=== PATIENT | female | born 1935 | race Caucasian/White ===

== ENCOUNTER 2018-07-29 11:43 | Emergency (ER) | payer OTHER ==
[2018-07-29 11:52] VITALS: BP 121/68; PULSE 99; TEMP 97.4; BMI 14.6
[2018-07-29] MEDS ORDERED: ONDANSETRON 4 MG/2 ML VIAL IVPUSH ONE (14:21)
[2018-07-29] MEDS ORDERED: SODIUM CHLORIDE 0.9% 1000 ML INFUS.BAG IV ONE (14:22)
[2018-07-29] MEDS ORDERED: FAMOTIDINE 20 MG/50 ML IVPB 20 MG/50 ML MG IVPB ONE ×2 (14:22→14:40)
[2018-07-29] MEDS ORDERED: ONDANSETRON 4 MG/2 ML VIAL ONE (14:40)
[2018-07-29] MEDS ORDERED: MECLIZINE HCL 25 MG TABLET (FP) PO ONE (14:42)
[2018-07-29] MEDS ORDERED: ONDANSETRON *ODT* 4 MG TABLET ONE (14:50)
[2018-07-29 16:07] LABS: BASO % 0.9 % (0-2.0); EOS % 0.8 % (0-4.5); HEMATOCRIT 36.6 % (32.4-45.2); HEMOGLOBIN 12.2 GM/dL (10.7-15.3); LYMPH % 32.1 % (8-40); MCH 27.8 pg (25.7-33.7); MCHC 33.4 g/dl (32.0-36.0); MEAN CELL VOLUME 83.2 fl (80-96); MEAN PLT VOLUME 8.3 fl (7.5-11.1); MONO % 7.6 % (3.8-10.2); NEUT % 58.6 % (42.8-82.8); PLATELET COUNT 297 K/MM3 (134-434); RDW 14.9 % (11.6-15.6); WHITE BLOOD COUNT 6.6 K/mm3 (4.0-10.0)
[2018-07-29 16:42] LABS: ALBUMIN 3.9 g/dl (3.4-5.0); ALK PHOS 74 U/L (45-117); ANION GAP 7 MMOL/L (8-16); BILIRUBIN,TOTAL 0.5 mg/dL (0.2-1); BLOOD UREA NITROGEN 24 mg/dL (7-18); CALCIUM 9.3 mg/dL (8.5-10.1); CHLORIDE 105 mmol/L (98-107); CO2 27 mmol/L (21-32); CREATININE 0.7 mg/dL (0.55-1.3); GLUCOSE,RANDOM 81 mg/dL (74-106); LIPASE 220 U/L (73-393); POTASSIUM 4.1 mmol/L (3.5-5.1); SGOT/AST 18 U/L (15-37); SGPT/ALT 8 U/L (13-61); SODIUM 139 mmol/L (136-145); TOT PROT 7.7 g/dl (6.4-8.2)
[2018-07-29] MEDS ORDERED: MECLIZINE HCL 25 MG TABLET (FP) ONE (16:58)
--- NOTE | 2018-07-29 19:06 | PDOC ---
Documentation entered by Yumiko Diaz SCRIBE, acting as scribe for Mansi Palma MD. History of Present Illness - General Chief Complaint: Nausea/Vomiting Stated Complaint: VOMITINGW/ DIZZINESS History Source: Patient Exam Limitations: No Limitations - History of Present Illness Initial Comments: 07/29/18 14:13 The patient is an 83 year old female with a significant past medical history of Parkinson disease, GERD, who present to the ED with complaint of 4 days of dizziness, nausea, vomiting, and abdominal pain. She states she has had about 4 episodes of NBNB emesis a day since onset. She reports the pain is localized to her mid abdominal region, 7/10 in severity which is worse than the pain was at onset 4 days ago. The patient states she feels as if she is spinning. The patient's daughter at bedside states the patient's gait has been unsteady since the symptoms started. The patient denies sick contacts. She states she has taken meclizine in the past for vertigo for which she sees Dr. Amor. The patient denies chest pain, SOB, palpitations. The patient denies nausea, vomiting, diarrhea, constipation. The patient denies dysuria or hematuria. Past History - Past Medical History Allergies/Adverse Reactions: Allergies Allergy/AdvReac Type Severity Reaction Status Date / Time No Known Allergies Allergy Verified 07/29/18 11:47 Home Medications: Ambulatory Orders Carbidopa/Levodopa [Sinemet 25-100 mg Tablet] 1 each PO QID 05/28/15 Meclizine HCl 25 mg PO TID 05/28/15 Omeprazole [Prilosec (RX)] 40 mg PO DAILY 05/28/15 Meclizine HCl 25 mg PO QID PRN #20 tablet 07/29/18 COPD: No Other medical history: PARKINSONS - Immunization History Immunization Up to Date: Yes - Suicide/Smoking/Psychosocial Hx Smoking History: Never smoked Have you smoked in the past 12 months: No Hx Alcohol Use: No Drug/Substance Use Hx: No Substance Use Type: None Review of Systems - Review of Systems Able to Perform ROS?: Yes Comments:: 07/29/18 14:25 GENERAL/CONSTITUTIONAL: No fever or chills. No weakness. HEAD, EYES, EARS, NOSE AND THROAT: No change in vision. No ear pain or discharge. No sore throat. CARDIOVASCULAR: No chest pain or shortness of breath. RESPIRATORY: No cough, wheezing, or hemoptysis. GASTROINTESTINAL: (+) epigastric pain, nausea, vomiting, No diarrhea or constipation. GENITOURINARY: No dysuria, frequency, or change in urination. MUSCULOSKELETAL: No joint or muscle swelling or pain. No neck or back pain. SKIN: No rash NEUROLOGIC: (+) dizziness. No headache, loss of consciousness, or change in strength/sensation. ENDOCRINE: No increased thirst. No abnormal weight change. HEMATOLOGIC/LYMPHATIC: No anemia, easy bleeding, or history of blood clots. ALLERGIC/IMMUNOLOGIC: No hives or skin allergy. *Physical Exam - Vital Signs Last Vital Signs Temp Pulse Resp BP Pulse Ox 97.4 F L 99 H 18 121/68 100 07/29/18 11:48 07/29/18 11:48 07/29/18 11:48 07/29/18 11:48 07/29/18 11:48 - Physical Exam Comments: 07/29/18 14:25 GENERAL: Awake, alert, and fully oriented, in no acute distress HEAD: No signs of trauma EYES: PERRLA, EOMI, sclera anicteric, conjunctiva clear ENT: Auricles normal inspection, hearing grossly normal, nares patent, oropharynx clear without exudates. Moist mucosa NECK: Normal ROM, supple, no lymphadenopathy, JVD, or masses LUNGS: Breath sounds equal, clear to auscultation bilaterally. No wheezes, and no crackles HEART: Regular rate and rhythm, normal S1 and S2, no murmurs, rubs or gallops ABDOMEN: (+) epigastric tenderness. Soft, normoactive bowel sounds. No guarding , no rebound. No masses EXTREMITIES: Normal range of motion, no edema. No clubbing or cyanosis. No cords, erythema, or tenderness NEUROLOGICAL: (+) resting tremor left upper and lower extremities. head shaking. Cranial nerves II through XII grossly intact. Normal speech. unsteady gait. SKIN: Warm, Dry, normal turgor, no rashes or lesions noted. ED Treatment Course - LABORATORY CBC & Chemistry Diagram: 07/29/18 15:58 07/29/18 15:58 - RADIOLOGY Radiology Studies Ordered: Category Date Time Status ABDOMEN CT WITH CONTRAST* [CT] Stat CT Scan 07/29/18 14:[address] WITHOUT CONTRAST [CT] Stat CT Scan 07/29/18 14:40 Ordered Medical Decision Making - Medical Decision Making 07/29/18 14:48 83 yo F with h/o parkinsons, vertigo, on meclizine at home here with n/v x 5 days. c/;o upper epigastric pain, unsteady gait, and vertigo like dizzines. daily having 5 eipsodes of n/v. no change to stool. no abd surgery. on exam mild epigastric ttp. differential vertigo, electrolyte abnormality pancreatitis gastritis dehydration , plan labs ct a/p, ct head. antiemetics and reassess. pt pcp dr hill, sees nuerology dr mendez. 07/29/18 14:50 07/29/18 16:47 focused ED ultraound ruq, indication epigastric pain. gallbladder scanned in two planes. no wall thickening no edema, no pericholecysitic fluid, neg sonographic [place] , no stones. cbd normal 5 mm anterior wall 2 mm. impression normal gallbladder. fu ct a/p ekg 07/29/18 19:[address] with mild gasrtric distension. hepatic lobe lesion unclear. feels improved following meclizline and zofran. tolerating po in ed. would like to go home. fu with dr mendez and dr marcum. *DC/Admit/Observation/Transfer Diagnosis at time of Disposition: Vertigo - Discharge Dispostion Disposition: HOME Condition at time of disposition: Improved Decision to Admit order: No - Prescriptions Prescriptions: Meclizine HCl 25 mg PO QID PRN #20 tablet PRN Reason: Vertigo - Referrals Referrals: Grant Marcum MD [Primary Care Provider] - - Patient Instructions Printed Discharge Instructions: DI for Vomiting -- Adult, Vertigo Additional Instructions: your ct scan shows mild distension of stomach. there is concern for nonspecific finding in liver , recommend a followup ultrasound in 2 months. you should see a hedge trimmer call dr harkins to schedule. return for any problems or concerns. take meclizine 25 mg every 6 hrs as needed for dizziness. - Post Discharge Activity Mansi Palma MD: This documentation has been prepared by the Emily mccord Amanda, SCRIBE, under my direction and personally reviewed by me in its entirety. I confirm that the documentation accurately reflects all work, treatment, procedures, and medical decision making performed by me.
== END 2018-07-29 19:30 | disposition home or self-care (01) ==
LOC: JER 11:43
PROC: 3E033GC Introduction of Other Therapeutic Substance into Peripheral Vein, Percutaneous Approach (ICD-10-PCS; principal; 2018-07-29)
PROC: 3E033GC Introduction of Other Therapeutic Substance into Peripheral Vein, Percutaneous Approach (ICD-10-PCS; 2018-07-29)
PROC: BF42ZZZ Ultrasonography of Gallbladder (ICD-10-PCS; 2018-07-29)
DX: R42 Dizziness and giddiness (principal); R10.13 Epigastric pain
CPT/HCPCS: 36415; 70450-TC; 74177-TC; 76705-TC; 80053; 82550; 83690; 84484; 85025; 96365; 96375; 99282-25; J7030

== ENCOUNTER 2019-03-17 09:24 | Inpatient (IN) | payer OTHER ==
[2019-03-17] MEDS ORDERED: morphine CARPU-JECT 2 MG/1 ML DISP.SYRIN IVPUSH ONE ×2 (09:50→14:10)
--- NOTE | 2019-03-17 10:01 | PDOC ---
Attending Attestation - Resident Resident Name: Catalino Jimenez - ED Attending Attestation I have performed the following: I have examined & evaluated the patient, The case was reviewed & discussed with the resident, I agree w/resident's findings & plan, Exceptions are as noted - HPI HPI: 03/17/19 10:01 Ms. Barry Hernandez is a ivan 83 yo F with a h/o Parkinson's disease s/p fall 4 days ago Pt is typically ambulatory in her home with a walker She sustained a fall on saturday night and was assisted to standing by her daughter and son Pt has been unable to walk since then Pt reports right hip and right knee pain She has also be noted by her family to have decreased po intake Pt states this is not secondary to nausea or abdominal pain She just doesn't want to eat No fevers or chills She has been compliant with her po medications - Physicial Exam PE: 03/17/19 09:53 GENERAL: The patient is in no acute distress, very thin. ENT: Ears normal, nares patent, oropharynx clear without exudates. Dry mucous membranes. NECK: Normal range of motion, supple LUNGS: Breath sounds equal, clear to auscultation bilaterally. No wheezes, and no crackles. HEART: Regular rate and rhythm, normal S1 and S2 without murmur, rub or gallop. ABDOMEN: Soft, nontender, non distended EXTREMITIES: Right leg externally rotated and shortened, left knee unable to flex at the knee NEUROLOGICAL: Cranial nerves II through XII grossly intact. Normal speech. No focal neurological deficits. SKIN: No rashed noted 03/17/19 10:33 - Medical Decision Making 03/17/19 10:36 83-year-old female with a history of Parkinson's disease presenting to the emergency department status post a fall several days ago, inability to ambulate since then. Patient's right leg is shortened and externally rotated She has been unable to bear weight Differential diagnosis includes: Hip fracture, pelvic fracture, musculoskeletal pain We will do: Labs CT head and C-spine X-ray hip pelvis Analgesia EKG Likely admit 03/17/19 10:37 Laboratory Tests 03/17/19 03/17/19 09:52 09:52 WBC 7.1 Hgb 12.3 Hct 35.9 Plt Count 319 PT with INR 12.00 INR 1.02 PTT (Actin FS) 26.0 03/17/19 13:31 X-ray: Right hip abnormal appearing, inferior pubic ramus fractured CT pelvis: acetabular fracture, inferior pubic ramus fracture Pt daughter going to get her parkinson's medication at home (we do not have it on formulary) Clinical impression: fall, initial presentation acetabular fracture, initial presentation inferior pubic ramus fracture, initial presentation
[2019-03-17] MEDS ORDERED: MORPHINE SULFATE 2 MG/ML VIAL ONE ×3 (10:03→16:21)
--- NOTE | 2019-03-17 10:08 | PDOC ---
History of Present Illness - General Chief Complaint: Injury Stated Complaint: FALL Time Seen by Provider: 03/17/19 09:42 History Source: Patient, Family Exam Limitations: Dementia - History of Present Illness Initial Comments: 03/17/19 10:03 Patient is an 83F with history of Parkinson's here today after an unwitnessed fall three days prior to her arrival. She was brought into the ED today because she has been complaining of R knee and R hip pain. Patient was able to use her walker after the fall. Patient denies headache, neck pain, chest pain, shortness of breath, abdominal pain. Patient has not complained of dysuria or increased frequency. Denies fevers, chills, nausea, vomiting. Past History - Past Medical History Allergies/Adverse Reactions: Allergies Allergy/AdvReac Type Severity Reaction Status Date / Time No Known Allergies Allergy Verified 03/17/19 10:13 Home Medications: Ambulatory Orders Carbidopa/Levodopa [Sinemet 25-100 mg Tablet] 1 each PO QID 05/28/15 Amantadine HCl [Amantadine] 100 mg PO DAILY 03/17/19 Docusate Sodium [Colace] 100 mg PO BID 03/17/19 Famotidine [Pepcid] 20 mg PO BID 03/17/19 Levodopa [Inbrija] 42 mg IH DAILY 03/17/19 Megestrol Acetate [Megace -] 20 mg PO QID 03/17/19 Meloxicam 7.5 mg PO TID 03/17/19 COPD: No Other medical history: PARKINSONS - Immunization History Immunization Up to Date: Yes - Psycho Social/Smoking Cessation Hx Smoking History: Never smoked Have you smoked in the past 12 months: No Hx Alcohol Use: No Drug/Substance Use Hx: No Substance Use Type: None Review of Systems - Review of Systems Able to Perform ROS?: Yes Comments:: 03/17/19 10:09 GENERAL/CONSTITUTIONAL: No fever or chills. No weakness. HEAD, EYES, EARS, NOSE AND THROAT: No change in vision. No sore throat. CARDIOVASCULAR: No chest pain or shortness of breath RESPIRATORY: No cough, wheezing, or hemoptysis. GASTROINTESTINAL: No nausea, vomiting, diarrhea or constipation. GENITOURINARY: No dysuria, frequency, or change in urination. MUSCULOSKELETAL: +R hip and R knee pain. No neck or back pain. SKIN: No rash NEUROLOGIC: No headache, vertigo, loss of consciousness, or change in strength/ sensation. ENDOCRINE: No increased thirst. No abnormal weight change HEMATOLOGIC/LYMPHATIC: No anemia, easy bleeding, or history of blood clots. ALLERGIC/IMMUNOLOGIC: No hives or skin allergy. *Physical Exam - Vital Signs Last Vital Signs Temp Pulse Resp BP Pulse Ox 97.4 F L 82 20 120/70 100 03/17/19 09:36 03/17/19 09:58 03/17/19 09:58 03/17/19 09:36 03/17/19 09:58 - Physical Exam 03/17/19 10:09 GENERAL: Awake, alert, and oriented to self/place, not year, in no acute distress HEAD: No signs of trauma, normocephalic, atraumatic EYES: PERRLA, EOMI, sclera anicteric, conjunctiva clear ENT: Auricles normal inspection, hearing grossly normal, nares patent, oropharynx clear without exudates. Moist mucosa NECK: Normal ROM, supple, no lymphadenopathy, JVD, or masses LUNGS: No distress, speaks full sentences, clear to auscultation bilaterally HEART: Regular rate and rhythm, normal S1 and S2, no murmurs, rubs or gallops, peripheral pulses normal and equal bilaterally. ABDOMEN: Soft, nontender, normoactive bowel sounds. No guarding, no rebound. No masses R Hip: Tender, normal ROM, neurovascularly intact, no bruising R knee: Nontender, normal ROM, no signs of trauma, neurovascularly intact NEUROLOGICAL: Cranial nerves II through XII grossly intact. Normal speech, no focal sensorimotor deficits, +parkinson's tremor SKIN: Warm, Dry, normal turgor, no rashes or lesions noted. ED Treatment Course - LABORATORY CBC & Chemistry Diagram: 03/17/19 09:52 03/17/19 09:52 - RADIOLOGY Radiology Studies Ordered: Category Date Time Status CERVICAL SPINE CT W/O CONTR [CT] Stat CT Scan 03/17/19 09:[address] WITHOUT CONTRAST [CT] Stat CT Scan 03/17/19 09:49 Ordered CHEST X-RAY PORTABLE* [RAD] Stat Radiology 03/17/19 09:49 Ordered HIP & PELVIS-RIGHT [RAD] Stat Radiology 03/17/19 09:49 Ordered Medical Decision Making - Medical Decision Making 03/17/19 10:11 Patient 83F with history of Parkinson's here today with unwitnessed fall. Mechanism unknown, cannot rule out syncope, however fall was three days ago. Vitals normal and stable. Patient's main complaint in R hip and R knee. Will treat with morphine. Will workup with cardiac labs, head ct, x-rays of hip and knee. 03/17/19 12:59 CBC, CMP reassuring. Trop negative. UA negative CT head, neck negative for acute pathology. CXR and knee negative for acute pathology Pelvis x-ray shows possibly shortened R femur, ?pelvic fracture. CT ordered 03/17/19 13:[address] shows communited fracture of R acetabulum and inferior pubic ramus Ortho paged Hospitalist paged Will admit for inability to ambulate 2/2 pelvic fracture. 03/17/19 13:58 D/w LEATHA Garcia, pt can weight bear as tolerated. Case d/w Dr Bradley, accepted to hospitalist service Discharge - Discharge Information Problems reviewed: Yes Clinical Impression/Diagnosis: Pelvic fracture Qualifiers: Encounter type: initial encounter Pelvic bone location: acetabulum Sublocation of acetabulum: unspecified portion of acetabulum Fracture type: closed Fracture alignment: nondisplaced Laterality: right Qualified Code(s): S32.401A - Unspecified fracture of right acetabulum, initial encounter for closed fracture Condition: Stable - Admission Yes - Follow up/Referral Referrals: Grant Marcum MD [Primary Care Provider] - - Patient Discharge Instructions - Post Discharge Activity
[2019-03-17 10:09] LABS: BASO % 0.2 % (0-2.0); EOS % 0.2 % (0-4.5); HEMATOCRIT 35.9 % (32.4-45.2); HEMOGLOBIN 12.3 GM/dL (10.7-15.3); LYMPH % 8.7 % (8-40); MCH 30.4 pg (25.7-33.7); MCHC 34.1 g/dl (32.0-36.0); MONO % 7.2 % (3.8-10.2); NEUT % 83.7 % (42.8-82.8); PLATELET COUNT 319 K/MM3 (134-434); RBC 4.04 M/mm3 (3.60-5.2); RDW 13.5 % (11.6-15.6); WHITE BLOOD COUNT 7.1 K/mm3 (4.0-10.0)
[2019-03-17 10:22] LABS: INR 1.02 (0.83-1.09)
[2019-03-17 10:37] LABS: ALBUMIN 3.7 g/dl (3.4-5.0); BILIRUBIN,TOTAL 0.7 mg/dL (0.2-1); BLOOD UREA NITROGEN 25.7 mg/dL (7-18); CALCIUM 8.9 mg/dL (8.5-10.1); CREATININE 0.8 mg/dL (0.55-1.3); MAGNESIUM 1.9 mg/dL (1.8-2.4); TOT PROT 7.6 g/dl (6.4-8.2)
[2019-03-17 10:51] LABS: EPI CELLS 2.5 /HPF (0-5/HPF); HYALINE CASTS 11 /lpf (0-8); URINE APPEARANCE CLEAR; URINE BILIRUBIN 1+ (NEGATIVE); URINE COLOR DK YELLOW; URINE GLUCOSE (UA) NEGATIVE (NEGATIVE); URINE KETONE TRACE (NEGATIVE); URINE LEUK ESTERASE NEGATIVE (NEGATIVE); URINE NITRITE NEGATIVE (NEGATIVE); URINE PROTEIN 1+ (NEGATIVE); URINE RBC 2 /hpf (0-4); URINE WBC 1 /hpf (0-5)
[2019-03-17 13:07] LABS: URINE BACTERIA MODERATE /hpf (NEGATIVE)
[2019-03-17] MEDS ORDERED: morphine CARPU-JECT 2 MG/1 ML DISP.SYRIN IVPUSH PRN (14:14)
[2019-03-17] MEDS ORDERED: LEVODOPA 42 MG IH SCH (14:30)
[2019-03-17] MEDS: SODIUM CHLORIDE 1,000 ML IV SCH (14:37)
--- NOTE | 2019-03-17 14:40 | HP ---
CHIEF COMPLAINT: mechanical fall 2 days ago PCP: kimberlyn Marcum HISTORY OF PRESENT ILLNESS: Patient curt historian so history obtained from family at bedside. 80 yo F w/ hx of Parkinson, multiple syncopal episodes it the past presents after a mechanical fall. Patient lost her balance and fell Saturday03-14-19. Denies feeling dizziness or losing consciousness. Hip pain started after fall and progressively worsened. Patient remaind bed bound for the past 2 days. Currently lives on a 3rd floor walk up. Denies chest pain, sob, abdominal pain or other comlaints ER course was notable for: CT showing fracture of inferior pubic ramus and R acetabulum PAST MEDICAL HISTORY: Parkinson PAST SURGICAL HISTORY: unable to obtain Social History: Denies smoking lives on 3rd floor walk up Allergies No Known Allergies Allergy (Verified 03/17/19 10:13) HOME MEDICATIONS: Home Medications Medication Instructions Recorded Carbidopa/Levodopa [Sinemet 25-100 1 each PO QID 05/28/ mg Tablet] Amantadine HCl [Amantadine] 100 mg PO DAILY 03/17/19 Docusate Sodium [Colace] 100 mg PO BID 03/17/19 Famotidine [Pepcid] 20 mg PO BID 03/17/19 Levodopa [Inbrija] 42 mg IH DAILY 03/17/19 Megestrol Acetate [Megace -] 20 mg PO QID 03/17/19 Meloxicam 7.5 mg PO TID 03/17/19 REVIEW OF SYSTEMS Patient curt historian refer to HPI. PHYSICAL EXAMINATION Vital Signs - 24 hr 03/17/19 03/17/19 03/17/19 09:36 09:58 10:37 Temperature 97.4 F L Pulse Rate 104 H Pulse Rate [ 82 Apical] Respiratory 24 H 20 Rate Blood Pressure 120/70 Blood Pressure [Left Arm] O2 Sat by Pulse 92 L 100 100 Oximetry (%) 03/17/19 14:11 Temperature Pulse Rate Pulse Rate [ 96 H Apical] Respiratory Rate Blood Pressure Blood Pressure 183/92 H [Left Arm] O2 Sat by Pulse 97 Oximetry (%) GENERAL: Awake, alert, and fully oriented, in no acute distress. HEAD: Normal with no signs of trauma. EYES: Psclera anicteric, conjunctiva clear EARS, NOSE, THROAT: Moist mucous membranes. NECK: supple LUNGS: Breath sounds equal, clear to auscultation bilaterally. No wheezes, and no crackles. No accessory muscle use. HEART: Regular rate and rhythm, normal S1 and S2 without murmur, rub or gallop. ABDOMEN: Soft, nontender, not distended, normoactive bowel sounds, no guarding, no rebound, no masses. No hepatomegaly or splenomegaly. MUSCULOSKELETAL: hip tenderness Ext: no cyanosis or edema NEUROLOGICAL: +resting tremor PSYCHIATRIC: Cooperative. Good eye contact. Appropriate mood and affect. SKIN: dry Laboratory Results - last 24 hr 03/17/19 03/17/19 03/17/19 09:52 09:52 09:52 WBC 7.1 RBC 4.04 Hgb 12.3 Hct 35.9 MCV 89.0 MCH 30.4 MCHC 34.1 RDW 13.5 Plt Count 319 MPV 7.0 L D Absolute Neuts (auto) 5.9 Neutrophils % 83.7 H D Lymphocytes % 8.7 D Monocytes % 7.2 Eosinophils % 0.2 Basophils % 0.2 Nucleated RBC % 0 PT with INR 12.00 INR 1.02 PTT (Actin FS) 26.0 Sodium Potassium Chloride Carbon Dioxide Anion Gap BUN Creatinine Est GFR (CKD-EPI)AfAm Est GFR (CKD-EPI)NonAf Random Glucose Calcium Magnesium Total Bilirubin AST ALT Alkaline Phosphatase Creatine Kinase 174 Creatine Kinase Index 0.8 CK-MB (CK-2) 1.5 Troponin I < 0.02 Total Protein Albumin Urine Color Urine Appearance Urine pH Ur Specific [place] Urine Protein Urine Glucose (UA) Urine Ketones Urine Blood Urine Nitrite Urine Bilirubin Urine Urobilinogen Ur Leukocyte Esterase Urine WBC (Auto) Urine RBC (Auto) Urine Casts (Auto) U Epithel Cells (Auto) Urine Bacteria (Auto) 03/17/19 03/17/19 09:52 10:20 WBC RBC Hgb Hct MCV MCH MCHC RDW Plt Count MPV Absolute Neuts (auto) Neutrophils % Lymphocytes % Monocytes % Eosinophils % Basophils % Nucleated RBC % PT with INR INR PTT (Actin FS) Sodium 133 L Potassium 4.0 Chloride 101 Carbon Dioxide 24 Anion Gap 8 BUN 25.7 H Creatinine 0.8 Est GFR (CKD-EPI)AfAm 79.57 Est GFR (CKD-EPI)NonAf 68.66 Random Glucose 64 L Calcium 8.9 Magnesium 1.9 Total Bilirubin 0.7 AST 22 ALT 7 L Alkaline Phosphatase 58 Creatine Kinase Creatine Kinase Index CK-MB (CK-2) Troponin I Total Protein 7.6 Albumin 3.7 Urine Color Dk yellow Urine Appearance Clear Urine pH 5.0 Ur Specific [place] 1.033 Urine Protein 1+ H Urine Glucose (UA) Negative Urine Ketones Trace H Urine Blood Negative Urine Nitrite Negative Urine Bilirubin 1+ H Urine Urobilinogen 1.0 Ur Leukocyte Esterase Negative Urine WBC (Auto) 1 Urine RBC (Auto) 2 Urine Casts (Auto) 11 U Epithel Cells (Auto) 2.5 Urine Bacteria (Auto) Moderate ASSESSMENT/PLAN: # R acetabulum and inferior pubic ramus fracture s/p mechanical fall - pain management - PT/OT eval - rn social work f/u - Ortho consult - no surgical intervention # Parkinson - c/w home medications # c/w rest of chronic home meds # dvt ppx: enoxaparin subq Problem List - Problem (1) Pelvic fracture Code(s): S32.9XXA - FRACTURE OF UNSP PARTS OF LUMBOSACRAL SPINE AND PELVIS, INIT Qualifiers: Encounter type: initial encounter Pelvic bone location: acetabulum Sublocation of acetabulum: unspecified portion of acetabulum Fracture type: closed Fracture alignment: nondisplaced Laterality: right Qualified Code(s ): S32.401A - Unspecified fracture of right acetabulum, initial encounter for closed fracture (2) Parkinson disease Code(s): G20 - PARKINSON'S DISEASE Visit type - Emergency Visit Emergency Visit: Yes Care time: The patient presented to the Emergency Department on the above date and was hospitalized for further evaluation of their emergent condition. - New Patient This patient is new to me today: Yes Date on this admission: 03/17/19 - Critical Care Critical Care patient: No
[2019-03-17] MEDS ORDERED: CARBIDOPA/LEVODOPA 25/100 TABLET (FP) ONE (15:24)
[2019-03-17] MEDS ORDERED: ACETAMINOPHEN 325 MG TABLET (FP) ONE (16:16)
[2019-03-17] MEDS: MORPHINE SULFATE 2 MG/ML VIAL IVPUSH PRN (16:26)
[2019-03-17] MEDS: ACETAMINOPHEN 325 MG TABLET (FP) PO PRN (17:02)
[2019-03-17] MEDS: CARBIDOPA/LEVODOPA 25/100 TABLET (FP) PO SCH ×2 (18:05→21:21)
[2019-03-17] MEDS ORDERED: FLU VACCINE QUAD 60 MCG/0.5 ML (MDV 19-20) IM ONE (18:21)
[2019-03-17] MEDS ORDERED: PNEUMOC 13-VAL CONJ-DIP CRM/PF 0.5 ML DISP.SYRIN IM ONE (18:21)
[2019-03-17] MEDS: LIDOCAINE 5% TOPICAL PATCH TP SCH (20:12)
[2019-03-17] MEDS: DOCUSATE SODIUM 100 MG CAPSULE (FP) PO SCH (21:21)
[2019-03-17] MEDS: LIDOCAINE PATCH REMOVAL MC SCH (21:21)
[2019-03-17] MEDS ORDERED: PATIENT'S OWN MEDICATION (NON-FORMULARY) (Meloxicam [Meloxicam] 7.5 MG) PO SCH (22:00)
[2019-03-17] MEDS: MEGESTROL ACETATE 20 MG TABLET PO SCH (22:55)
[2019-03-18] MEDS: ACETAMINOPHEN 325 MG TABLET (FP) PO PRN (06:46)
--- NOTE | 2019-03-18 08:49 | PN ---
Progress Note, Physician Chief Complaint: No complaints offered. Daughter at bedside History of Present Illness: Patient poor historian so history obtained from family at bedside. 80 yo F w/ hx of Parkinson, multiple syncopal episodes it the past presents after a mechanical fall. Patient lost her balance and fell Saturday03-14-19. Denies feeling dizziness or losing consciousness. Hip pain started after fall and progressively worsened. Patient remaind bed bound for the past 2 days. Currently lives on a 3rd floor walk up. Denies chest pain, sob, abdominal pain or other comlaints ER course was notable for: CT showing fracture of inferior pubic ramus and R acetabulum - Current Medication List Current Medications: Active Medications Acetaminophen (Tylenol -) 650 mg PO Q4H PRN PRN Reason: PAIN Last Admin: 03/17/19 17:02 Dose: 650 mg Amantadine HCl (Symmetrel -) 100 mg PO DAILY [facility] Carbidopa/Levodopa (Sinemet 25/100 -) 1 each PO QID [facility] Last Admin: 03/17/19 21:21 Dose: 1 each Docusate Sodium (Colace -) 100 mg PO BID [facility] Last Admin: 03/17/19 21:21 Dose: 100 mg Enoxaparin Sodium (Lovenox -) 40 mg SQ DAILY [facility] Sodium Chloride (Normal Saline -) 1,000 mls @ 75 mls/hr IV ASDIR [facility] Last Admin: 03/17/19 14:37 Dose: 75 mls/hr Lidocaine (Lidoderm Patch -) 1 patch TP DAILY [facility] Last Admin: 03/17/19 20:12 Dose: 1 patch Megestrol Acetate (Megace -) 20 mg PO QID [facility] Last Admin: 03/17/19 22:55 Dose: 20 mg Miscellaneous (Lidoderm Patch Removal) 1 each MC DAILY@2200 [facility] Last Admin: 03/17/19 21:21 Dose: Not Given Morphine Sulfate (Morphine Sulfate) 2 mg IVPUSH Q4H PRN PRN Reason: PAIN LEVEL 7 - 10 Last Admin: 03/17/19 16:26 Dose: 2 mg Non-Formulary Medication (Levodopa [Inbrija]) 42 mg IH DAILY [facility] Non-Formulary Medication (Meloxicam [Meloxicam]) 7.5 mg PO TID [facility] - Objective Vital Signs: Vital Signs Temperature 98.0 F 03/18/19 06:00 Pulse Rate 92 H 03/18/19 06:00 Respiratory Rate 18 03/18/19 06:00 Blood Pressure 100/62 03/18/19 06:00 O2 Sat by Pulse Oximetry (%) 98 03/17/19 21:00 Constitutional: Yes: Thin Eyes: Yes: WNL, Conjunctiva Clear HENT: Yes: WNL, Atraumatic, Normocephalic Cardiovascular: Yes: WNL, Regular Rate and Rhythm Respiratory: Yes: WNL, Regular, CTA Bilaterally Gastrointestinal: Yes: WNL, Normal Bowel Sounds ...Rectal Exam: Yes: Deferred Genitourinary: Yes: WNL Breast(s): Yes: WNL Musculoskeletal: Yes: Other (right Hip TTP) Extremities: Yes: WNL Edema: No Peripheral Pulses WNL: Yes Peripheral Pulses: Left Radial: 2+, Right Radial: 2+, Left Doralis Pedis: 2+, Right Dorsalis Pedis: 2+, Left Femoral: 2+, Right Femoral: 2+ Integumentary: Yes: WNL Neurological: Yes: Tremors (resting) ...Motor Strength: WNL (generalized weakness) Psychiatric: Yes: Alert Labs: CBC, BMP 03/17/19 09:52 03/17/19 09:52 INR, PTT INR 1.02 (0.83-1.09) 03/17/19 09:52 - ....Imaging Cat Scan: Report Reviewed (Pelvic Ct noted) Problem List - Problems (1) Syncope and collapse Assessment/Plan: ortostatics done PT dispo to SNF when medically cleared Code(s): R55 - SYNCOPE AND COLLAPSE (2) Fracture of inferior pubic ramus Assessment/Plan: seen by Ortho, no suurgical intevention at this time PT pain managment Code(s): S32.599A - OTH FRACTURE OF UNSP PUBIS, INIT ENCNTR FOR CLOSED FRACTURE (3) Right acetabular fracture Assessment/Plan: see above Code(s): S32.401A - UNSP FRACTURE OF RIGHT ACETABULUM, INIT FOR CLOS FX (4) Prophylactic measure Assessment/Plan: FEN regular diet encourage PO fluids monitor electrolytes add prosorce BID DVT heparin sq Dispo maintain as inpatient until SNF is approved full code Code(s): Z29.9 - ENCOUNTER FOR PROPHYLACTIC MEASURES, UNSPECIFIED (5) Pelvic fracture Code(s): S32.9XXA - FRACTURE OF UNSP PARTS OF LUMBOSACRAL SPINE AND PELVIS, INIT Qualifiers: Encounter type: initial encounter Pelvic bone location: acetabulum Sublocation of acetabulum: unspecified portion of acetabulum Fracture type: closed Fracture alignment: nondisplaced Laterality: right Qualified Code(s ): S32.401A - Unspecified fracture of right acetabulum, initial encounter for closed fracture (6) Parkinson disease Assessment/Plan: c/w simemet Code(s): G20 - PARKINSON'S DISEASE (7) Severe protein-calorie malnutrition Assessment/Plan: Clinical indicators: BMI 14, albumin 3.4, generalized weakness, sunken cheeks with prominent bones with muscle wasting Risk Factors: chronic illness, parkinsons dz, pelvic Fx with immobolity C/w regualr diet with snacks add prosource and MVI Code(s): E43 - UNSPECIFIED SEVERE PROTEIN-CALORIE MALNUTRITION Visit type - Emergency Visit Emergency Visit: Yes ED Registration Date: 03/17/19 Care time: The patient presented to the Emergency Department on the above date and was hospitalized for further evaluation of their emergent condition. - New Patient This patient is new to me today: Yes Date on this admission: 03/19/19 - Critical Care Critical Care patient: No - Discharge Referral Referred to [facility] Med P.C.: No
[2019-03-18] MEDS ORDERED: PT OWN MED DRAWER 7, Y5N ONE ×4 (09:33→21:09)
[2019-03-18] MEDS: DOCUSATE SODIUM 100 MG CAPSULE (FP) PO SCH ×3 (09:36→21:43)
[2019-03-18] MEDS: CARBIDOPA/LEVODOPA 25/100 TABLET (FP) PO SCH ×6 (09:36→21:43)
[2019-03-18] MEDS: MEGESTROL ACETATE 20 MG TABLET PO SCH ×5 (09:36→21:43)
[2019-03-18] MEDS: LIDOCAINE 5% TOPICAL PATCH TP SCH (09:37)
[2019-03-18] MEDS: AMANTADINE HCL 100 MG TABLET PO SCH (09:37)
--- NOTE | 2019-03-18 09:59 | EKG ---
Test Reason : Blood Pressure : / mmHG Vent. Rate : 082 BPM Atrial Rate : 082 BPM P-R Int : 158 ms QRS Dur : 082 ms QT Int : 376 ms P-R-T Axes : 039 028 011 degrees QTc Int : 439 ms NORMAL SINUS RHYTHM VOLTAGE CRITERIA FOR LEFT VENTRICULAR HYPERTROPHY ABNORMAL ECG WHEN COMPARED WITH ECG OF 28-MAY-2015 22:23, ST NO LONGER DEPRESSED IN INFERIOR LEADS ST NO LONGER DEPRESSED IN ANTERIOR LEADS Confirmed by MAGI LAW, GARIMA ([id number]) on 03/18/2019 9:59:13 AM Referred By: Confirmed By:GARIMA SOW MD
[2019-03-18] MEDS ORDERED: ENOXAPARIN NA (PORCINE) 40 MG/0.4 ML DISP.SYRIN SQ SCH (10:00)
[2019-03-18 12:29] LABS: BASO % 0.4 % (0-2.0); EOS % 0.3 % (0-4.5); HEMATOCRIT 35.3 % (32.4-45.2); HEMOGLOBIN 11.8 GM/dL (10.7-15.3); LYMPH % 13.3 % (8-40); MCHC 33.4 g/dl (32.0-36.0); MEAN CELL VOLUME 89.9 fl (80-96); MEAN PLT VOLUME 7.5 fl (7.5-11.1); MONO % 4.7 % (3.8-10.2); NEUT % 81.3 % (42.8-82.8); PLATELET COUNT 299 K/MM3 (134-434); RBC 3.92 M/mm3 (3.60-5.2); RDW 13.8 % (11.6-15.6); WHITE BLOOD COUNT 6.2 K/mm3 (4.0-10.0)
[2019-03-18 13:01] LABS: ALBUMIN 3.2 g/dl (3.4-5.0); BILIRUBIN,TOTAL 0.8 mg/dL (0.2-1); BLOOD UREA NITROGEN 23.1 mg/dL (7-18); CALCIUM 8.3 mg/dL (8.5-10.1); CREATININE 0.8 mg/dL (0.55-1.3); POTASSIUM 3.9 mmol/L (3.5-5.1); TOT PROT 6.5 g/dl (6.4-8.2)
[2019-03-18] MEDS: SODIUM CHLORIDE 1,000 ML IV SCH (14:34)
--- NOTE | 2019-03-18 16:19 | CONSULT ---
Consult Consult Specialty:: orthopedics - History of Present Illness Chief Complaint: right hip pain x 4 days History of Present Illness: 83y/o female with hx of parkinsons c/o right hip and knee pain s/p unwitnessed fall 4 days ago. She was unable to ambulate with a walker and was taken to the ER to evaluation. She had a X-ray and CT in the ER which showed a acetabular fracture. No hip fracture. She still is unable to ambulated. 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 - Alcohol/Substance Use Hx Alcohol Use: No History of Substance Use: reports: None - Smoking History Smoking history: Never smoked Have you smoked in the past 12 months: No - Social History ADL: Support Services Home Medications - Allergies Allergies/Adverse Reactions: Allergies Allergy/AdvReac Type Severity Reaction Status Date / Time No Known Allergies Allergy Verified 03/17/19 10:13 - Home Medications Home Medications: Ambulatory Orders Carbidopa/Levodopa [Sinemet 25-100 mg Tablet] 1 each PO QID 05/28/15 Amantadine HCl [Amantadine] 100 mg PO DAILY 03/17/19 Docusate Sodium [Colace] 100 mg PO BID 03/17/19 Famotidine [Pepcid] 20 mg PO BID 03/17/19 Levodopa [Inbrija] 42 mg IH DAILY 03/17/19 Megestrol Acetate [Megace -] 20 mg PO QID 03/17/19 Meloxicam 7.5 mg PO TID 03/17/19 Amino Acids/Protein Hydrolys [Prosource No Carb Liquid Pkt] 30 ml PO BID@0800, 1730 packet 03/20/19 Heparin - 5,000 unit SQ BID vial 03/20/19 Lidocaine 5% Patch [Lidoderm -] 1 patch TP DAILY patch 03/20/19 Tetrahydrozoline HCl [Visine -] 1 drop OU QID drops 03/20/19 Review of Systems - Review of Systems Constitutional: reports: No Symptoms Eyes: reports: No Symptoms HENT: reports: No Symptoms Neck: reports: No Symptoms Cardiovascular: reports: No Symptoms Respiratory: reports: No Symptoms Gastrointestinal: reports: No Symptoms Genitourinary: reports: No Symptoms Breasts: reports: No Symptoms Reported Musculoskeletal: reports: Extremity Pain Integumentary: reports: No Symptoms Neurological: reports: No Symptoms Endocrine: reports: No Symptoms Hematology/Lymphatic: reports: No Symptoms Psychiatric: reports: No Symptoms Physical Exam Vital Signs: Vital Signs Temperature 98.0 F 03/18/19 06:00 Pulse Rate 100 H 03/18/19 08:47 Respiratory Rate 18 03/18/19 09:00 Blood Pressure 158/79 03/18/19 08:47 O2 Sat by Pulse Oximetry (%) 98 03/18/19 09:00 Constitutional: Yes: Well Nourished, No Distress, Calm HENT: Yes: Atraumatic, Normocephalic Musculoskeletal: Yes: Other (Pelvis/RLE: There is pain with motion of the hip. Smooth Motion of the hip with no blocks to motion. There is mild tenderness along the medial and lateral joint spaces of the knee. knee ROM 0-90deg. No instablity. Compartments are soft. Calf non-tender. NVID. LLE: No motion at knee. Family states this is chronic.) Labs: CBC, BMP 03/18/19 11:40 03/18/19 11:40 Imaging - Results X-ray: Report Reviewed, Image Reviewed Cat Scan: Report Reviewed, Image Reviewed (Minimally dislaped acetabular and pelvis ramus fracture) Assessment/Plan #1 Right pelvic ramus and acetabular fracture -Discussed today's findings and treatment options with the patient and family. Together we decided to proceed non-operatively. -Weight bearing as tolerated -pain control -Physical therapy -Discharge planning. Will likely need STR. -Follow up as outpatinet in 3-4 weeks
[2019-03-18] MEDS: HEPARIN NA (PORCINE) 5,000 UNITS/ML 1ML VIAL SQ SCH (21:43)
[2019-03-18] MEDS: LIDOCAINE PATCH REMOVAL MC SCH (21:44)
[2019-03-19] MEDS: SODIUM CHLORIDE 1,000 ML IV SCH ×2 (06:28→21:28)
[2019-03-19] MEDS: MORPHINE SULFATE 2 MG/ML VIAL IVPUSH PRN (06:31)
--- NOTE | 2019-03-19 07:23 | PN ---
Progress Note, Physician Chief Complaint: No complaints offered. Awaiting SNF placement History of Present Illness: Patient poor historian so history obtained from family at bedside. 80 yo F w/ hx of Parkinson, multiple syncopal episodes it the past presents after a mechanical fall. Patient lost her balance and fell Saturday03-14-19. Denies feeling dizziness or losing consciousness. Hip pain started after fall and progressively worsened. Patient remaind bed bound for the past 2 days. Currently lives on a 3rd floor walk up. Denies chest pain, sob, abdominal pain or other comlaints ER course was notable for: CT showing fracture of inferior pubic ramus and R acetabulum - Current Medication List Current Medications: Active Medications Acetaminophen (Tylenol -) 650 mg PO Q4H PRN PRN Reason: PAIN Last Admin: 03/17/19 17:02 Dose: 650 mg Amantadine HCl (Symmetrel -) 100 mg PO DAILY [facility] Last Admin: 03/18/19 09:37 Dose: 100 mg Carbidopa/Levodopa (Sinemet 25/100 -) 1 each PO QID [facility] Last Admin: 03/18/19 21:43 Dose: 1 each Docusate Sodium (Colace -) 100 mg PO BID [facility] Last Admin: 03/18/19 21:43 Dose: 100 mg Heparin Sodium (Porcine) (Heparin -) 5,000 unit SQ BID [facility] Last Admin: 03/18/19 21:43 Dose: 5,000 unit Sodium Chloride (Normal Saline -) 1,000 mls @ 75 mls/hr IV ASDIR [facility] Last Admin: 03/19/19 06:28 Dose: 75 mls/hr Lidocaine (Lidoderm Patch -) 1 patch TP DAILY [facility] Last Admin: 03/18/19 09:37 Dose: 1 patch Megestrol Acetate (Megace -) 20 mg PO QID [facility] Last Admin: 03/18/19 21:43 Dose: 20 mg Miscellaneous (Lidoderm Patch Removal) 1 each MC DAILY@2200 [facility] Last Admin: 03/18/19 21:44 Dose: 1 each Morphine Sulfate (Morphine Sulfate) 2 mg IVPUSH Q4H PRN PRN Reason: PAIN LEVEL 7 - 10 Last Admin: 03/19/19 06:31 Dose: 2 mg Non-Formulary Medication (Levodopa [Inbrija]) 42 mg IH DAILY [facility] Non-Formulary Medication (Meloxicam [Meloxicam]) 7.5 mg PO TID [facility] - Objective Vital Signs: Vital Signs Temperature 99.1 F 03/19/19 05:45 Pulse Rate 95 H 03/19/19 05:45 Respiratory Rate 18 03/19/19 05:45 Blood Pressure 130/77 03/19/19 05:45 O2 Sat by Pulse Oximetry (%) 98 03/18/19 23:32 Additional Findings/Remarks: Constitutional: Yes: Thin Eyes: Yes: WNL, Conjunctiva Clear HENT: Yes: WNL, Atraumatic, Normocephalic Cardiovascular: Yes: WNL, Regular Rate and Rhythm Respiratory: Yes: WNL, Regular, CTA Bilaterally Gastrointestinal: Yes: WNL, Normal Bowel Sounds ...Rectal Exam: Yes: Deferred Genitourinary: Yes: WNL Breast(s): Yes: WNL Musculoskeletal: Yes: Other (right Hip TTP) Extremities: Yes: WNL Edema: No Peripheral Pulses WNL: Yes Peripheral Pulses: Left Radial: 2+, Right Radial: 2+, Left Doralis Pedis: 2+, Right Dorsalis Pedis: 2+, Left Femoral: 2+, Right Femoral: 2+ Integumentary: Yes: WNL Neurological: Yes: Tremors (resting) ...Motor Strength: WNL (generalized weakness) Psychiatric: Yes: Alert Labs: CBC, BMP 03/18/19 11:40 03/18/19 11:40 INR, PTT INR 1.02 (0.83-1.09) 03/17/19 09:52 - ....Imaging Cat Scan: Report Reviewed Problem List - Problems (1) Syncope and collapse Assessment/Plan: ortostatics done PT dispo to SNF when medically cleared Code(s): R55 - SYNCOPE AND COLLAPSE (2) Fracture of inferior pubic ramus Assessment/Plan: seen by Ortho, no suurgical intevention at this time PT pain managment Code(s): S32.599A - OTH FRACTURE OF UNSP PUBIS, INIT ENCNTR FOR CLOSED FRACTURE (3) Right acetabular fracture Assessment/Plan: see above Code(s): S32.401A - UNSP FRACTURE OF RIGHT ACETABULUM, INIT FOR CLOS FX (4) Prophylactic measure Assessment/Plan: FEN regular diet encourage PO fluids monitor electrolytes add prosorce BID DVT heparin sq Dispo maintain as inpatient until SNF is approved full code Code(s): Z29.9 - ENCOUNTER FOR PROPHYLACTIC MEASURES, UNSPECIFIED (5) Pelvic fracture Code(s): S32.9XXA - FRACTURE OF UNSP PARTS OF LUMBOSACRAL SPINE AND PELVIS, INIT Qualifiers: Encounter type: initial encounter Pelvic bone location: acetabulum Sublocation of acetabulum: unspecified portion of acetabulum Fracture type: closed Fracture alignment: nondisplaced Laterality: right Qualified Code(s ): S32.401A - Unspecified fracture of right acetabulum, initial encounter for closed fracture (6) Parkinson disease Assessment/Plan: c/w simemet resting tremor persists Code(s): G20 - PARKINSON'S DISEASE Visit type - Emergency Visit Emergency Visit: Yes ED Registration Date: 03/17/19 Care time: The patient presented to the Emergency Department on the above date and was hospitalized for further evaluation of their emergent condition. - New Patient This patient is new to me today: No - Critical Care Critical Care patient: No - Discharge Referral Referred to [facility] No
[2019-03-19 08:58] LABS: BASO % 0.5 % (0-2.0); HEMATOCRIT 35.4 % (32.4-45.2); LYMPH % 17.7 % (8-40); MCH 30.1 pg (25.7-33.7); MCHC 33.9 g/dl (32.0-36.0); MEAN CELL VOLUME 88.8 fl (80-96); MEAN PLT VOLUME 7.5 fl (7.5-11.1); MONO % 6.1 % (3.8-10.2); NEUT % 74.7 % (42.8-82.8); PLATELET COUNT 319 K/MM3 (134-434); RBC 3.99 M/mm3 (3.60-5.2); RDW 13.8 % (11.6-15.6)
[2019-03-19 09:21] LABS: ALBUMIN 3.4 g/dl (3.4-5.0); BILIRUBIN,TOTAL 0.8 mg/dL (0.2-1); BLOOD UREA NITROGEN 18.4 mg/dL (7-18); CALCIUM 8.7 mg/dL (8.5-10.1); CREATININE 0.7 mg/dL (0.55-1.3); MAGNESIUM 1.8 mg/dL (1.8-2.4); POTASSIUM 4.2 mmol/L (3.5-5.1); TOT PROT 6.6 g/dl (6.4-8.2)
[2019-03-19] MEDS: MEGESTROL ACETATE 20 MG TABLET PO SCH ×3 (10:09→21:28)
[2019-03-19] MEDS: HEPARIN NA (PORCINE) 5,000 UNITS/ML 1ML VIAL SQ SCH ×2 (10:10→21:28)
[2019-03-19] MEDS: DOCUSATE SODIUM 100 MG CAPSULE (FP) PO SCH ×2 (10:10→21:27)
[2019-03-19] MEDS: CARBIDOPA/LEVODOPA 25/100 TABLET (FP) PO SCH ×4 (10:11→21:28)
[2019-03-19] MEDS: LIDOCAINE 5% TOPICAL PATCH TP SCH (10:11)
[2019-03-19] MEDS: AMANTADINE HCL 100 MG TABLET PO SCH (10:12)
[2019-03-19] MEDS: MULTIVITAMINS (DAILY MVI) TABLET (FP) PO SCH (15:25)
[2019-03-19] MEDS: AMINO ACIDS/PROTEIN HYDROLYS 30 ML LIQUID.PKT PO SCH (17:10)
[2019-03-19] MEDS ORDERED: PT OWN MED DRAWER 7, Y5N ONE (21:16)
[2019-03-19] MEDS: ACETAMINOPHEN 325 MG TABLET (FP) PO PRN (21:27)
[2019-03-19] MEDS: LIDOCAINE PATCH REMOVAL MC SCH (21:28)
[2019-03-20] MEDS: ACETAMINOPHEN 325 MG TABLET (FP) PO PRN (06:34)
[2019-03-20 08:50] LABS: BASO % 0.3 % (0-2.0); EOS % 3.2 % (0-4.5); HEMATOCRIT 35.5 % (32.4-45.2); HEMOGLOBIN 12.1 GM/dL (10.7-15.3); LYMPH % 29.3 % (8-40); MCH 30.5 pg (25.7-33.7); MCHC 34.1 g/dl (32.0-36.0); MEAN CELL VOLUME 89.4 fl (80-96); MEAN PLT VOLUME 7.7 fl (7.5-11.1); MONO % 8.3 % (3.8-10.2); NEUT % 58.9 % (42.8-82.8); PLATELET COUNT 315 K/MM3 (134-434); RBC 3.97 M/mm3 (3.60-5.2); RDW 13.6 % (11.6-15.6); WHITE BLOOD COUNT 4.7 K/mm3 (4.0-10.0)
[2019-03-20 09:20] LABS: ALBUMIN 3.4 g/dl (3.4-5.0); BILIRUBIN,TOTAL 0.7 mg/dL (0.2-1); CALCIUM 8.9 mg/dL (8.5-10.1); CREATININE 0.7 mg/dL (0.55-1.3); MAGNESIUM 1.8 mg/dL (1.8-2.4); POTASSIUM 4.2 mmol/L (3.5-5.1); TOT PROT 6.9 g/dl (6.4-8.2)
[2019-03-20] MEDS ORDERED: PT OWN MED DRAWER 7, Y5N ONE ×4 (09:30→17:18)
[2019-03-20] MEDS: MULTIVITAMINS (DAILY MVI) TABLET (FP) PO SCH (09:36)
[2019-03-20] MEDS: LIDOCAINE 5% TOPICAL PATCH TP SCH (09:36)
[2019-03-20] MEDS: AMINO ACIDS/PROTEIN HYDROLYS 30 ML LIQUID.PKT PO SCH ×2 (09:36→18:02)
[2019-03-20] MEDS: MEGESTROL ACETATE 20 MG TABLET PO SCH ×3 (09:36→18:01)
[2019-03-20] MEDS: DOCUSATE SODIUM 100 MG CAPSULE (FP) PO SCH (09:36)
[2019-03-20] MEDS: CARBIDOPA/LEVODOPA 25/100 TABLET (FP) PO SCH ×3 (09:36→17:59)
[2019-03-20] MEDS: HEPARIN NA (PORCINE) 5,000 UNITS/ML 1ML VIAL SQ SCH (09:46)
[2019-03-20] MEDS: AMANTADINE HCL 100 MG TABLET PO SCH (10:00)
[2019-03-20] MEDS: TETRAHYDROZOLINE HCL EYE DROPS OU SCH ×2 (15:53→18:02)
--- NOTE | 2019-03-20 16:02 | DS ---
Physical Exam: SUBJECTIVE: Patient seen and examined OBJECTIVE: 80 yo F w/ hx of Parkinson, multiple syncopal episodes it the past presents after a mechanical fall. Patient lost her balance and fell Saturday03-14-19. Denies feeling dizziness or losing consciousness. Hip pain started after fall and progressively worsened. Patient remaind bed bound for the past 2 days. Currently lives on a 3rd floor walk up. Denies chest pain, sob, abdominal pain or other comlaints ER course was notable for: CT showing fracture of inferior pubic ramus and R acetabulum Vital Signs Period Temp Pulse Resp BP Sys/Beltran Pulse Ox Last 24 Hr 97.5 F-98.5 F 85-105 18-20 137-170/68-93 98-98 PHYSICAL EXAM GENERAL: Awake, alert, and fully oriented, in no acute distress. HEAD: Normal with no signs of trauma. EYES: Psclera anicteric, conjunctiva clear EARS, NOSE, THROAT: Moist mucous membranes. NECK: supple LUNGS: Breath sounds equal, clear to auscultation bilaterally. No wheezes, and no crackles. No accessory muscle use. HEART: Regular rate and rhythm, normal S1 and S2 without murmur, rub or gallop. ABDOMEN: Soft, nontender, not distended, normoactive bowel sounds, no guarding, no rebound, no masses. No hepatomegaly or splenomegaly. MUSCULOSKELETAL: hip tenderness Ext: no cyanosis or edema NEUROLOGICAL: +resting tremor PSYCHIATRIC: Cooperative. Good eye contact. Appropriate mood and affect. LABS Laboratory Results - last 24 hr 03/20/19 03/20/19 07:55 07:55 WBC 4.7 RBC 3.97 Hgb 12.1 Hct 35.5 MCV 89.4 MCH 30.5 MCHC 34.1 RDW 13.6 Plt Count 315 MPV 7.7 Absolute Neuts (auto) 2.8 Neutrophils % 58.9 D Lymphocytes % 29.3 D Monocytes % 8.3 Eosinophils % 3.2 D Basophils % 0.3 Nucleated RBC % 0 Sodium 139 Potassium 4.2 Chloride 107 Carbon Dioxide 24 Anion Gap 8 BUN 18.0 Creatinine 0.7 Est GFR (CKD-EPI)AfAm 93.52 Est GFR (CKD-EPI)NonAf 80.69 Random Glucose 85 Calcium 8.9 Magnesium 1.8 Total Bilirubin 0.7 AST 19 ALT 10 L Alkaline Phosphatase 56 Total Protein 6.9 Albumin 3.4 HOSPITAL COURSE: Date of Admission:03/17/19 Date of Discharge: 03/20/19 discharge to rehab. Minutes to complete discharge: 45 Discharge Summary Problems reviewed: Yes Reason For Visit: FRACTURE OF PELVIS Current Active Problems Fracture of inferior pubic ramus (Acute) Pelvic fracture (Acute) Prophylactic measure (Acute) Right acetabular fracture (Acute) Severe protein-calorie malnutrition (Acute) Syncope and collapse (Acute) Condition: Stable - Instructions Diet, Activity, Other Instructions: discharge to rehab Referrals: Grant Marcum MD [Primary Care Provider] - Disposition: [facility] - Home Medications Comprehensive Discharge Medication List: Ambulatory Orders Carbidopa/Levodopa [Sinemet 25-100 mg Tablet] 1 each PO QID 05/28/15 Amantadine HCl [Amantadine] 100 mg PO DAILY 03/17/19 Docusate Sodium [Colace] 100 mg PO BID 03/17/19 Famotidine [Pepcid] 20 mg PO BID 03/17/19 Levodopa [Inbrija] 42 mg IH DAILY 03/17/19 Megestrol Acetate [Megace -] 20 mg PO QID 03/17/19 Meloxicam 7.5 mg PO TID 03/17/19 Amino Acids/Protein Hydrolys [Prosource No Carb Liquid Pkt] 30 ml PO BID@0800, 1730 packet 03/20/19 Heparin - 5,000 unit SQ BID vial 03/20/19 Lidocaine 5% Patch [Lidoderm -] 1 patch TP DAILY patch 03/20/19 Tetrahydrozoline HCl [Visine -] 1 drop OU QID drops 03/20/19 Problem List - Problems (1) Fracture of inferior pubic ramus Code(s): S32.599A - OTH FRACTURE OF UNSP PUBIS, INIT ENCNTR FOR CLOSED FRACTURE (2) Pelvic fracture Code(s): S32.9XXA - FRACTURE OF UNSP PARTS OF LUMBOSACRAL SPINE AND PELVIS, INIT Qualifiers: Encounter type: initial encounter Pelvic bone location: acetabulum Sublocation of acetabulum: unspecified portion of acetabulum Fracture type: closed Fracture alignment: nondisplaced Laterality: right Qualified Code(s ): S32.401A - Unspecified fracture of right acetabulum, initial encounter for closed fracture (3) Prophylactic measure Code(s): Z29.9 - ENCOUNTER FOR PROPHYLACTIC MEASURES, UNSPECIFIED (4) Right acetabular fracture Code(s): S32.401A - UNSP FRACTURE OF RIGHT ACETABULUM, INIT FOR CLOS FX (5) Severe protein-calorie malnutrition Code(s): E43 - UNSPECIFIED SEVERE PROTEIN-CALORIE MALNUTRITION (6) Syncope and collapse Code(s): R55 - SYNCOPE AND COLLAPSE (7) Parkinson disease Code(s): G20 - PARKINSON'S DISEASE (8) Syncope Code(s): R55 - SYNCOPE AND COLLAPSE Qualifiers: Encounter type: initial encounter (9) Vertigo Code(s): R42 - DIZZINESS AND GIDDINESS This patient is new to me today: No Emergency Visit: Yes ED Registration Date: 03/17/19 Care time: The patient presented to the Emergency Department on the above date and was hospitalized for further evaluation of their emergent condition. Critical Care patient: No - Discharge Referral Referred to [facility] Med P.C.: No
[2019-03-20 22:16] VITALS: BP 140/87; PULSE 84; TEMP 98.3
[2019-03-22 01:51] VITALS: BMI 13.6
== END 2019-03-20 20:45 | DRG 535 ==
LOC: JER 09:24 → JERBED 13:32 → J6S 17:42
PROVIDERS: ADMIT Internal Medicine; ATTEND Nurse Practitioner Family
DX: S32.401A Unspecified fracture of right acetabulum, initial encounter for closed fracture (principal); E43 Unspecified severe protein-calorie malnutrition; Z68.1 Body mass index [BMI] 19.9 or less, adult; G20 Parkinson's disease; R55 Syncope and collapse; W19.XXXA Unspecified fall, initial encounter; Y93.9 Activity, unspecified; Y92.89 Other specified places as the place of occurrence of the external cause
CPT/HCPCS: 36415; 70450-TC; 71045-TC-FY; 72125-TC; 72192-TC; 73523-TC-FY; 73562-TC-RT-FY; 80053; 81003; 82550; 82553; 83735; 84484; 85025; 85610; 85730; 87086; 90670; 93005; 93010; 97116-GP; 97162-GP; 99285-25; G0008; G0009; J1644; J7030; J8999; Q2036

== ENCOUNTER 2022-01-22 20:52 | Inpatient (IN) | payer OTHER ==
[2022-01-22 21:30] VITALS: BMI 17.6
[2022-01-22 22:25] LABS: BASO % 0.9 % (0-2.0); EOS % 1.6 % (0-4.5); HEMATOCRIT 37.7 % (32.4-45.2); HEMOGLOBIN 12.4 GM/dL (10.7-15.3); LYMPH % 16.4 % (8-40); MCH 27.9 pg (25.7-33.7); MCHC 32.9 g/dl (32.0-36.0); MEAN PLT VOLUME 7.1 fl (7.5-11.1); MONO % 8.1 % (3.8-10.2); PLATELET COUNT 351 10^3/uL (134-434); RBC 4.43 M/mm3 (3.60-5.2); RDW 14.4 % (11.6-15.6); WHITE BLOOD COUNT 6.8 K/mm3 (4.0-10.0)
[2022-01-22 22:42] LABS: CALCIUM 8.9 mg/dL (8.5-10.1)
[2022-01-22 22:43] LABS: ALBUMIN 3.3 g/dl (3.4-5.0); BLOOD UREA NITROGEN 21.3 mg/dL (7-18)
[2022-01-22 22:46] LABS: CREATININE 0.7 mg/dL (0.55-1.3)
[2022-01-22 22:47] LABS: BILIRUBIN,TOTAL 0.6 mg/dL (0.2-1); TOT PROT 7.2 g/dl (6.4-8.2)
[2022-01-23 01:00] LABS: CALCIUM 9.2 mg/dL (8.5-10.1)
[2022-01-23] MEDS ORDERED: SODIUM CHLORIDE 0.9% 500 ML INFUS.BAG IV ONE (01:22)
[2022-01-23] MEDS ORDERED: amLODIPine BESYLATE 5 MG TABLET (FP) PO ONE (01:26)
[2022-01-23 02:33] LABS: BLOOD UREA NITROGEN 21.1 mg/dL (7-18); CREATININE 0.7 mg/dL (0.55-1.3)
[2022-01-23] MEDS ORDERED: amLODIPine BESYLATE 5 MG TABLET (FP) ONE ×2 (03:06→10:26)
[2022-01-23 06:41] LABS: BASO % 0.7 % (0-2.0); EOS % 2.7 % (0-4.5); HEMATOCRIT 36.7 % (32.4-45.2); HEMOGLOBIN 11.9 GM/dL (10.7-15.3); LYMPH % 27.3 % (8-40); MCH 27.9 pg (25.7-33.7); MCHC 32.5 g/dl (32.0-36.0); MEAN PLT VOLUME 7.4 fl (7.5-11.1); MONO % 8.4 % (3.8-10.2); NEUT % 60.9 % (42.8-82.8); PLATELET COUNT 329 10^3/uL (134-434); RBC 4.27 M/mm3 (3.60-5.2); RDW 14.6 % (11.6-15.6); WHITE BLOOD COUNT 6.6 K/mm3 (4.0-10.0)
[2022-01-23 07:12] LABS: CALCIUM 8.5 mg/dL (8.5-10.1); MAGNESIUM 1.9 mg/dL (1.8-2.4)
[2022-01-23 07:13] LABS: BLOOD UREA NITROGEN 18.4 mg/dL (7-18)
[2022-01-23 07:15] LABS: CREATININE 0.6 mg/dL (0.55-1.3)
[2022-01-23 07:16] LABS: BILIRUBIN,TOTAL 0.7 mg/dL (0.2-1); PHOSPHOROUS 3.8 mg/dL (2.5-4.9); TOT PROT 6.5 g/dl (6.4-8.2)
[2022-01-23] MEDS ORDERED: amLODIPine BESYLATE 5 MG TABLET (FP) PO SCH (10:00)
[2022-01-23] MEDS ORDERED: metoPROLOL SUCCINATE 25 MG TAB.SR.24H (FP) PO ONE (10:26)
[2022-01-23] MEDS ORDERED: CARBIDOPA/LEVODOPA 25/100 TABLET (FP) ONE ×2 (10:27→13:55)
[2022-01-23] MEDS ORDERED: ENOXAPARIN NA (PORCINE) 40 MG/0.4 ML DISP.SYRIN SQ ONE (10:27)
[2022-01-23] MEDS: ENOXAPARIN NA (PORCINE) 40 MG/0.4 ML DISP.SYRIN SQ SCH (10:38)
[2022-01-23] MEDS: CARBIDOPA/LEVODOPA 25/100 TABLET (FP) PO SCH ×2 (10:38→13:58)
[2022-01-23] MEDS: metoPROLOL SUCCINATE 25 MG TAB.SR.24H (FP) PO SCH (10:39)
[2022-01-23] MEDS ORDERED: AMINO ACIDS 4.25%/D5W 1,000 ML IV SCH ×2 (15:15→17:30)
[2022-01-23 15:56] LABS: ARTERIAL BLD GAS O2 SATURATION 99.9 % (95-98); ARTERIAL BLOOD GAS BASE EXCESS 0.2 mmol/L (-2-2); ARTERIAL BLOOD GAS PO2 469.4 mmHg (80-100); ARTERIAL BLOOD GAS pH 7.477 (7.350-7.450)
[2022-01-23 15:57] LABS: ALLENS TEST POSITIVE
[2022-01-23] MEDS ORDERED: PNEUMOC 20-VAL CONJ-DIP CRM/PF 0.5 ML SYRINGE IM ONE (17:38)
[2022-01-23] MEDS: AMANTADINE HCL 100 MG TABLET PO SCH ×2 (18:05→22:42)
[2022-01-23] MEDS: CARBIDOPA/LEVODOPA 25/250 TABLET (FP) PO SCH ×2 (18:05→22:42)
[2022-01-23] MEDS ORDERED: AMANTADINE HCL 100 MG TABLET PO SCH (22:00)
[2022-01-23 22:14] LABS: EPI CELLS 5 /uL (0-25.1); HYALINE CASTS 0 /uL (0-3.1); URINE APPEARANCE CLEAR; URINE BILIRUBIN NEGATIVE (NEGATIVE); URINE COLOR YELLOW; URINE GLUCOSE (UA) NEGATIVE (NEGATIVE); URINE KETONE NEGATIVE (NEGATIVE); URINE LEUK ESTERASE TRACE (NEGATIVE); URINE NITRITE POSITIVE (NEGATIVE); URINE PROTEIN NEGATIVE (NEGATIVE); URINE UROBILINOGEN 0.2 mg/dL (0.2-1.0); URINE WBC 16 /uL (0-25.8)
[2022-01-23 22:17] LABS: URINE BACTERIA 1146.7 /uL (0-1359); URINE RBC 509.8 /uL (0-23.9)
[2022-01-24] MEDS: CARBIDOPA/LEVODOPA 25/250 TABLET (FP) PO SCH ×4 (06:26→21:24)
[2022-01-24] MEDS: CARBIDOPA/LEVODOPA 10/100 TABLET (FP) PO SCH ×2 (09:01→10:09)
[2022-01-24] MEDS: AMANTADINE HCL 100 MG TABLET PO SCH ×2 (09:02→17:38)
[2022-01-24] MEDS ORDERED: ACETAMINOPHEN 325 MG TABLET (FP) PO PRN (09:34)
[2022-01-24] MEDS ORDERED: ACETAMINOPHEN 325 MG TABLET (FP) PO ONE (09:34)
[2022-01-24] MEDS ORDERED: PATIENT'S OWN MEDICATION (NON-FORMULARY) (Meloxicam [Meloxicam] 7.5 MG Tablet) PO SCH (10:00)
[2022-01-24] MEDS: FOLIC ACID 1 MG TABLET (FP) PO SCH (10:07)
[2022-01-24] MEDS: metoPROLOL SUCCINATE 25 MG TAB.SR.24H (FP) PO SCH (10:07)
[2022-01-24] MEDS: ENOXAPARIN NA (PORCINE) 40 MG/0.4 ML DISP.SYRIN SQ SCH (10:07)
[2022-01-24] MEDS: MULTIVITAMINS (DAILY MVI) TABLET (FP) PO SCH (10:11)
[2022-01-24] MEDS ORDERED: CARBIDOPA/LEVODOPA 25/250 TABLET (FP) PO SCH (18:00)
[2022-01-25 03:20] VITALS: RESP 18
[2022-01-25 07:56] LABS: HEMATOCRIT 36.8 % (32.4-45.2); HEMOGLOBIN 12.5 GM/dL (10.7-15.3); MCH 28.9 pg (25.7-33.7); MCHC 34.1 g/dl (32.0-36.0); MEAN CELL VOLUME 84.9 fl (80-96); PLATELET COUNT 355 10^3/uL (134-434); RBC 4.34 M/mm3 (3.60-5.2); RDW 14.4 % (11.6-15.6); WHITE BLOOD COUNT 3.1 K/mm3 (4.0-10.0)
[2022-01-25 08:23] LABS: BLOOD UREA NITROGEN 18.5 mg/dL (7-18); CALCIUM 9.2 mg/dL (8.5-10.1)
[2022-01-25 08:26] LABS: CREATININE 0.6 mg/dL (0.55-1.3)
[2022-01-25 08:27] LABS: TOT PROT 7.8 g/dl (6.4-8.2)
[2022-01-25 08:29] LABS: BILIRUBIN,TOTAL 1.3 mg/dL (0.2-1)
[2022-01-25 08:34] LABS: ALBUMIN 3.7 g/dl (3.4-5.0)
[2022-01-25 09:25] VITALS: BP 135/98; PULSE 86; TEMP 98.5
[2022-01-25] MEDS: metoPROLOL SUCCINATE 25 MG TAB.SR.24H (FP) PO SCH (09:25)
[2022-01-25] MEDS: ENOXAPARIN NA (PORCINE) 40 MG/0.4 ML DISP.SYRIN SQ SCH (09:25)
[2022-01-25] MEDS: MULTIVITAMINS (DAILY MVI) TABLET (FP) PO SCH (09:26)
[2022-01-25] MEDS: FOLIC ACID 1 MG TABLET (FP) PO SCH (09:26)
[2022-01-25] MEDS: AMANTADINE HCL 100 MG TABLET PO SCH (09:26)
[2022-01-25] MEDS: CARBIDOPA/LEVODOPA 10/100 TABLET (FP) PO SCH (09:26)
[2022-01-25 10:15] LABS: ANISOCYTOSIS 0; MACROCYTOSIS 0
== END 2022-01-25 11:27 | disposition home or self-care (01) | DRG 304 ==
LOC: JER 20:52 → JERBED 22:46 → UNDOADMOB 22:46 → INTOOBSV 22:46 → OBSVTOIN 01-23 01:22 → JERBED 01-23 11:20 → J4W 01-23 14:52 → OBSVTOIN 01-24 10:09
PROVIDERS: ADMIT Internal Medicine; ATTEND Nurse Practitioner Family
DX: I16.1 Hypertensive emergency (principal); E43 Unspecified severe protein-calorie malnutrition; J96.01 Acute respiratory failure with hypoxia; E87.1 Hypo-osmolality and hyponatremia; Z68.1 Body mass index [BMI] 19.9 or less, adult; R64 Cachexia; G20 Parkinson's disease; R62.7 Adult failure to thrive; E87.5 Hyperkalemia
CPT/HCPCS: 36415; 36600; 70450-TC; 70551-TC; 71045-TC-FY; 74230-TC-FY; 80048; 80053; 81003; 82436; 82533; 82550; 82803; 83036; 83605; 83735; 83930; 83935; 84100; 84133; 84300; 84439; 84443; 84484; 85025; 85379; 87086; 92611-GN; 93005; 93010; 93306-TC; 94761; 97116-GP; 97162-GP; 99285-25; C9803-CS; G0378; U0003; U0005